=== PATIENT | female | born 1975 | race Hispanic/Latino ===

== ENCOUNTER 2020-03-12 01:36 | Emergency (ER) | payer SELFPAY ==
[2020-03-12 01:38] VITALS: BP 138/85; PULSE 88; RESP 20; TEMP 36.4; O2SAT 100
--- NOTE | 2020-03-12 01:52 | PC.NURSE ---
pt ambulated to bathroom w/ no difficulty to give urine sample.
--- NOTE | 2020-03-12 01:56 | ED.ABDPAIN ---
HPI - Abdominal Pain General Chief Complaint: Abdominal Pain Stated Complaint: abd pain Time Seen by Provider: 03/12/20 01:56 History of Present Illness HPI narrative: Epigastric pain for the past 2 months. She has been seen by her PCP multiple times for the pain. She was started on omeprazole as well as 3 antibiotics. She has not been taking the omeprazole regularly because she feels like it contributes to her pain. One of the antibiotics seems to have been prescribed for chlamydia. She says that she was having vaginal discharge, which has resolved. It is not clear what the other antibiotics are for. No nausea, vomiting, diarrhea, SOB, dark/bloody stools. Related Data Home Medications Medication Instructions Recorded Confirmed amoxicillin 500 mg PO Q12H 03/12/20 clarithromycin 500 mg PO Q12H 03/12/20 doxycycline hyclate 100 mg PO DAILY 03/12/20 Allergies Allergy/AdvReac Type Severity Reaction Status Date / Time No Known Allergies Allergy Verified 03/12/20 01:41 Review of Systems Review of Systems: All systems reviewed & are unremarkable except as noted in HPI and below Constitutional: Constitutional: Denies fever(s) and Denies weakness Cardiovascular: Cardiovascular: Denies chest pain Respiratory: Respiratory: Denies dyspnea Gastrointestinal: Gastrointestinal: Reports abdominal pain, Denies nausea and Denies vomiting Genitourinary: Genitourinary: Denies hematuria and Denies dysuria Neurologic: Denies weakness Exam Const: General: healthy appearing, no acute distress and alert Orientation/consciousness: patient oriented x3 HENMT: Head: normal to inspection Neck: Neck: normal visual inspection and no lymphadenopathy Resp: Effort & Inspection: normal respiratory effort Auscultation: clear to auscultation bilaterally, no rales, no rhonchi and no wheezes Cardio: Jugular venous distension: no JVD Rate: regular rate Rhythm: regular rhythm Heart sounds: no murmurs GI: Inspection: non-distended GI Palp: Yes Soft to palpation and Yes Tenderness to palpation present (GI) (epigastrium) Skin: General skin exam: normal color Neuro: General: patient oriented x3 and moves all extremities Speech: normal speech Extrem: General: no edema Psych: Appearance: well kempt Affect: normal affect Course Vital Signs Vital signs: Vital Signs Temperature 36.4 C L 03/12/20 01:38 Pulse Rate 88 09/14/20 01:38 Respiratory Rate 20 03/12/20 01:38 Blood Pressure 138/85 03/12/20 01:38 Pulse Oximetry 100 03/12/20 01:38 Temperature 36.4 C L 03/12/20 01:38 Pulse Rate 92 03/12/20 03:19 Respiratory Rate 16 03/12/20 03:19 Blood Pressure 121/79 03/12/20 03:19 Pulse Oximetry 99 03/12/20 03:19 MDM - Abdominal Pain MDM Narrative Medical decision making narrative: Pain resolved after GI cocktail. I will change her PPI since she was not tolerating omeprazole. She will likely need GI follow-up for endoscopy. Differential Diagnosis Differential diagnosis: Likely pancreatitis and other (GERD, PUD, H. pylori) Medical Records Attestation: I reviewed the patient's medical records. Lab Data Attestation: I reviewed the patient's lab results. Result diagrams: 03/12/20 02:16 03/12/20 02:16 Labs: Lab Results 03/12/20 03/12/20 03/12/20 Range/Units 02:16 02:16 02:47 WBC 6.5 (4.5-10.0) K/mm3 RBC 4.25 (4.2-5.4) M/mm3 Hgb 13.2 (12.0-15.0) g/dL Hct 39.9 (37.0-47.0) % MCV 93.9 (80-100) fl MCH 31.1 (26-34) pg MCHC 33.1 (32-36) g/dl RDW 13.3 (11.5-14.5) % Plt Count 402 H (150-375) k/mm3 MPV 9.6 (7.4-10.4) fl Immature Gran % (Auto) 0.2 (0-0.5) % Neut % (Auto) 56.5 (45.5-73.1) % Lymph % (Auto) 32.6 (18.3-44.2) % [place] % (Auto) 8.0 (2.6-8.5) % Eos % (Auto) 1.9 (0-4.4) % Baso % (Auto) 0.8 (0.2-1.2) % Lymph # (Auto) 2.11 (0.9-3.2) K/mm3 [place] # (Auto) 0.5 (0.1-0.6) K/mm3 Eos # (Au
[2020-03-12 02:21] LABS: Basophils Absolute Auto 0.1 K/mm3 (0.0-0.1); Basophils Percent Auto 0.8 % (0.2-1.2); Eosinophils Absolute Auto 0.1 K/mm3 (0-0.3); Eosinophils Percent Auto 1.9 % (0-4.4); Hematocrit 39.9 % (37.0-47.0); Hemoglobin 13.2 g/dL (12.0-15.0); Immature Granulocyte Absolute 0.01 K/mm3 (0.00-0.031); Immature Granulocyte Percent A 0.2 % (0-0.5); Lymphocytes Absolute Auto 2.11 K/mm3 (0.9-3.2); Lymphocytes Percent Auto 32.6 % (18.3-44.2); Mean Corpuscular HGB Conc 33.1 g/dl (32-36); Mean Corpuscular Hemoglobin 31.1 pg (26-34); Mean Corpuscular Volume 93.9 fl (80-100); Mean Platelet Volume 9.6 fl (7.4-10.4); Monocytes Absolute Auto 0.5 K/mm3 (0.1-0.6); Neutrophils Absolute Auto 3.7 K/mm3 (1.3-6.7); Neutrophils Percent Auto 56.5 % (45.5-73.1); Platelet Count Result 402 k/mm3 (150-375); Red Blood Count 4.25 M/mm3 (4.2-5.4); Red Cell Distribution Width 13.3 % (11.5-14.5); White Blood Count 6.5 K/mm3 (4.5-10.0)
[2020-03-12] MEDS: PANTOPRAZOLE SODIUM IV 40 MG VIAL IV PUSH (02:21)
[2020-03-12 02:35] LABS: Alanine Aminotransferase 19 U/L (4-35); Albumin Level 4.4 g/dL (3.5-5.1); Alkaline Phosphatase 94 U/L (38-126); Anion Gap 10 mmol/L (8-16); Aspartate Amino Transferase 23 U/L (14-36); Bilirubin,Total 0.8 mg/dL (0.2-1.3); Blood Urea Nitrogen 4 mg/dL (7-17); Calcium 9.3 mg/dL (8.4-10.2); Carbon Dioxide 26 mmol/L (22-30); Chloride 102 mmol/L (98-107); Estimated Glomerular Filt Rate > 60; Glucose 121 mg/dL (65-105); Lipase 142 U/L (23-300); Potassium 3.3 mmol/L (3.4-5.0); Sodium 138 mmol/L (137-145)
[2020-03-12 03:01] LABS: Add Urine Microscopic? YES; Appearance Urine Clear (Clear); Bilirubin Urine Negative (Negative); Blood Urine Negative (Negative); Color Urine Straw (Yellow); Glucose Urine UA Negative (Negative); Ketones Urine Trace mg/dL (Negative); Leukocyte Esterase Ur Negative LEU/UL (Negative); Nitrate Urine Negative (Negative); Protein Urine Negative (Negative); RBC Urine 0-2 /hpf (0-2); Specific Grav Ur 1.006 (1.001-1.035); Squamous Epithelial Cell Urine Moderate /hpf (Few); Urobilinogen Urine Negative mg/dL (<2.0); WBC Urine 0-3 /hpf
[2020-03-12 03:19] VITALS: BP 121/79; PULSE 92; RESP 16; O2SAT 99
== END 2020-03-12 03:21 | disposition home or self-care (01) ==
PROVIDERS: Emergency Provider Emergency Medicine
DX: R10.13 Epigastric pain (principal)
CPT/HCPCS: 36415; 80053; 81001; 81025; 83690; 85025; 96374; 99284; A9270; C9113